=== PATIENT | male | born 1970 | race Caucasian/White ===

== ENCOUNTER 2019-11-01 20:36 | Observation (INO) ==
[2019-11-01] MEDS ORDERED: Aspirin 325 MG TABLET PO ONE (21:01)
[2019-11-01] MEDS ORDERED: Isovue-370 500 ML BOTTLE IVP ONE (21:10)
[2019-11-01 21:24] LABS: Basophils # 0.1 K/mcL (0.0-0.2); Basophils % 0.6 %; Eosinophils # 0.1 K/mcL (0.0-0.6); Eosinophils % 1.7 %; Hematocrit 44.7 % (37.5-50.1); Hemoglobin 15.7 g/dL (12.9-16.9); Immature Granulocytes % 0.2 % (0-4); Lymphocytes # 3.7 K/mcL (0.6-4.6); Lymphocytes % 45.7 %; Mean Corpuscular HGB Conc 35.1 g/dL (31.6-35.5); Mean Corpuscular Hemoglobin 31.3 pg (28.0-33.3); Mean Corpuscular Volume 89.2 fL (83.0-100.0); Mean Platelet Volume 11.6 fL (9.4-12.4); Monocytes # 0.4 K/mcL (0.0-1.3); Neutrophils # 3.8 K/mcL (1.6-8.9); Platelet Count 198 K/mcL (140-400); Red Blood Count 5.01 M/mcL (4.19-5.50); Red Cell Distribution Width 11.9 % (11.5-14.5); Segmented Neutrophils % 46.8 %; White Blood Count 8.1 K/mcL (4.3-11.1)
[2019-11-01] MEDS: Nitroglycerin 0.4 MG TAB.SUBL SL SCH ×3 (21:31→21:42)
[2019-11-01 21:45] LABS: BUN/Creatinine Ratio 12 (6-26); Blood Urea Nitrogen 13 mg/dL (6-20); Calcium 9.2 mg/dL (8.6-10.3); Carbon Dioxide 23 mEq/L (23-29); Chloride 102 mEq/L (98-107); Glucose 380 mg/dL (70-105); Osmolality,Calculated 296 (280-300); Sodium 135 mEq/L (136-145); eGFR For African Americans > 60 (> 60); eGFR For Non-African Americans > 60 (> 60)
[2019-11-01 21:47] LABS: Troponin I < 0.03 ng/mL (< 0.04)
[2019-11-02] MEDS ORDERED: Naloxone 0.4 MG/ML INJ IVP PRN (02:37)
[2019-11-02] MEDS ORDERED: Acetaminophen 325 MG TABLET PO PRN (02:37)
[2019-11-02] MEDS ORDERED: Mag Hydrox/Al Hydrox/Simeth 30 ML UDC PO PRN (02:37)
[2019-11-02 04:22] LABS: Basophils % 0.5 %; Eosinophils # 0.2 K/mcL (0.0-0.6); Eosinophils % 2.2 %; Hematocrit 43.2 % (37.5-50.1); Immature Granulocytes % 0.3 % (0-4); Lymphocytes # 3.6 K/mcL (0.6-4.6); Mean Corpuscular HGB Conc 34.7 g/dL (31.6-35.5); Mean Corpuscular Hemoglobin 31.1 pg (28.0-33.3); Mean Corpuscular Volume 89.6 fL (83.0-100.0); Mean Platelet Volume 11.7 fL (9.4-12.4); Monocytes # 0.5 K/mcL (0.0-1.3); Monocytes % 5.7 %; Neutrophils # 3.6 K/mcL (1.6-8.9); Platelet Count 193 K/mcL (140-400); Red Blood Count 4.82 M/mcL (4.19-5.50); Segmented Neutrophils % 45.3 %; White Blood Count 7.8 K/mcL (4.3-11.1)
[2019-11-02 04:36] LABS: BUN/Creatinine Ratio 17 (6-26); Blood Urea Nitrogen 14 mg/dL (6-20); Calcium 8.8 mg/dL (8.6-10.3); Carbon Dioxide 24 mEq/L (23-29); Chloride 104 mEq/L (98-107); Chol/HDL Ratio 3.9 (0-4.9); Cholesterol 108 mg/dL (< 200); Glucose 190 mg/dL (70-105); HDL Cholesterol 28 mg/dL (40-59); LDL Cholesterol,Calculated 13 mg/dL (0-99); Osmolality,Calculated 292 (280-300); Potassium 3.6 mEq/L (3.5-5.1); Sodium 138 mEq/L (136-145); Triglycerides 337 mg/dL (< 150); eGFR For African Americans > 60 (> 60); eGFR For Non-African Americans > 60 (> 60)
[2019-11-02] MEDS ORDERED: *HR* Heparin 5,000 UNIT/ML VIAL SQ SCH (06:00)
[2019-11-02] MEDS: Insulin LISPRO 300 UNITS/3 ML VIAL SQ SCH ×2 (08:13→13:01)
[2019-11-02] MEDS ORDERED: Aspirin 81 MG TAB.CHEW PO SCH (09:00)
[2019-11-02] MEDS ORDERED: Lisinopril 20 MG TABLET PO SCH (09:00)
[2019-11-02 13:04] VITALS: BP 123/78
[2019-11-02] MEDS ORDERED: Insulin DETEMIR 100 UNIT/ML X5UNITS SQ SCH (21:00)
== END 2019-11-02 16:30 | disposition home or self-care (01) ==
LOC: EMEROOARM 20:36 → 3BNU 20:36 → SUATTDRO 11-02 00:43 → 3BNU 11-02 00:46
PROVIDERS: ADMIT Internal Medicine; ATTEND Nurse Practitioner Acute Care